=== PATIENT | female | born 1995 | race Caucasian/White ===

== ENCOUNTER 2018-06-06 12:10 | Emergency (ER) | payer MEDICAID, SELFPAY ==
[2018-06-06 12:11] VITALS: BP 143/83; PULSE 92; RESP 16; TEMP 36.8; O2SAT 100; BMI 23.6
[2018-06-06] MEDS: Naproxen 500 MG Tablet PO (12:59)
[2018-06-06 13:04] LABS: Bacteria 0 SEEN /hpf (None Seen); Mucous, Urine 0 SEEN /hpf (<or=2+); White Blood Cells 0 SEEN /hpf (0-5)
[2018-06-06 13:10] LABS: Color, Urine Yellow (Yellow); Glucose, Dipstick Normal (Normal); Ketone-Dipstick Negative (Negative); Leukocyte Esterase-Dipstick Negative /ul (Negative); Nitrite-Dipstick Negative (Negative); Occult Blood-Urine 10 /ul (Negative); Protein-Dipstick Negative (Negative); Urine Bilirubin Dipstick Negative (Negative); Urine Clarity Sl. Cloudy (Clear); Urine Urobilinogen Normal (Normal)
[2018-06-06 13:11] LABS: Internal QC Validated? YES +Cl - CLEAR BKGD; Pregnancy, Urine Negative Negative
[2018-06-06 13:18] LABS: Red Blood Cells-Urine 0-5 SEEN /hpf (0-5); Squamous Epithelial Cells - UA 0-5 SEEN /hpf (5-10)
--- NOTE | 2018-06-06 13:43 | ED.VISSUMM ---
- ER Visit Summary Date of Service: 06/06/18 Chief Complaint: Back pain History of Present Illness: The patient is a 23 F with rather sudden onset of back pain when getting out of bed this morning. She had one episode of nausea and vomiting yesterday this month is resolved. Patient has history of chlamydia and HPV. She states she had kidney problems as a child but does not remember details. Physical Examination: Vital signs unremarkable. Patient sitting upright in bed. She is in no acute distress. Head neck examination normal. Heart is regular rate and rhythm. Lung sounds are clear. Abdomen is soft and nontender. Back examination reveals bilateral CVA tenderness. No overlying skin change. There is tenderness in the lumbar paraspinal muscles as well. Test Results: Urinalysis is unremarkable. Urine negative. Emergency Department Course and Treatment: Patient was given Flexeril and Naprosyn. On repeat evaluation she does have some improvement. Test results were discussed with her. She will be given Flexeril and Naprosyn for home. Treatment Plan: [] Disposition: Discharge Impression: Lumbar paraspinal strain This note was generated with [employer] dictation software. It may contain incorrect words, spelling, and punctuation that were not noted in review of the chart prior to signing ED Disposition - Plan for ED Patient: Chief Complaint: Back Referrals: [facility] Doctor,Out of [Primary Care Provider] -
--- NOTE | 2018-06-06 13:44 | ED.DEP ---
ED Disposition - Plan for ED Patient: Disposition: Home or Assisted Living Chief Complaint: Back Instructions: ED Neck Back Pain General Prescriptions: Naproxen [Naprosyn] 500 mg PO BID PRN PRN #20 tablet PRN Reason: Pain Cyclobenzaprine [Flexeril] 10 mg PO TID PRN #20 tablet PRN Reason: Muscle Spasm Referrals: [facility],Out of [Primary Care Provider] - 1 Week if not improving
== END 2018-06-06 13:58 | disposition home or self-care (01) ==
PROVIDERS: Emergency Provider Emergency Medicine
DX: S39.012A Strain of muscle, fascia and tendon of lower back, initial encounter (principal); X50.0XXA Overexertion from strenuous movement or load, initial encounter; Y93.89 Activity, other specified; Y92.003 Bedroom of unspecified non-institutional (private) residence as the place of occurrence of the external cause; Y99.8 Other external cause status
CPT/HCPCS: 81001; 81025; 99283